=== PATIENT | male | born 1945 | race Caucasian/White ===

== ENCOUNTER 2017-07-07 14:31 | Emergency (ER) | payer MEDICARE, OTHER ==
[~2017-07-07 14:31] MED LIST: ATEN1TAB74
[2017-07-07 14:38] VITALS: BP 206/114; PULSE 100; RESP 20; TEMP 97.2; O2SAT 96
[2017-07-07] MEDS ORDERED: MULTTAB67 PO (15:23)
[2017-07-07] MEDS ORDERED: OMEGCAP PO (15:23)
[2017-07-07] MEDS ORDERED: HYDR-3516 PO (15:40)
[2017-07-07] MEDS ORDERED: ACYC800T PO (15:40)
--- NOTE | 2017-07-07 15:40 | PD ---
HPI Chief Complaint: Skin Problem Time Seen by Provider: 15:37 Travel History International Travel<30 days: No Contact w/Intl Traveler<30days: No Traveled to known affect area: No History of Present Illness HPI Patient presents with complaints of a rash in his left flank for 4 days. Denies any nausea vomiting diarrhea or fever. Reports associated pain with a rash. No history of Zostavax. Denies any chest pain shortness of breath urinary or bowel symptoms. PFSH Past Medical History Hypertension: Yes Tetanus Vaccination: > 5 Years Influenza Vaccination: Yes ?: Not Social History Alcohol Use: Yes (occ) Tobacco Use: No Allergies-Medications (Allergen,Severity, Reaction): Coded Allergies: No Known Allergies (Verified Allergy, Mild, 11/21/06) Uncoded Allergies: STEROIDS (Allergy, Severe, 11/21/06) Reported Meds & Prescriptions Reported Meds & Active Scripts Active Reported Multiple Vitamin 1 Tab 1 Tab PO DAILY [place]-3 Fish Oil/Vitamin (Fish Oil-Cholecalciferol) 1,000-1,000 Mg Cap 1 Cap PO DAILY Review of Systems General / Constitutional: No: Fever Eyes: No: Visual changes HENT: No: Headaches Cardiovascular: No: Chest Pain or Discomfort Respiratory: No: Shortness of Breath Gastrointestinal: No: Abdominal Pain Genitourinary: No: Dysuria Musculoskeletal: No: Pain Skin: Positive Rash Neurologic: No: Weakness Psychiatric: No: Depression Endocrine: No: Polydipsia Hematologic/Lymphatic: No: Easy Bruising Physical Exam Narrative GENERAL: Well-nourished, well-developed patient. SKIN: Focused skin assessment warm/dry. HEAD: Normocephalic. EYES: No scleral icterus. No injection or drainage. NECK: Supple, trachea midline. No JVD or lymphadenopathy. CARDIOVASCULAR: Regular rate and rhythm without murmurs, gallops, or rubs. RESPIRATORY: Breath sounds equal bilaterally. No accessory muscle use. GASTROINTESTINAL: Abdomen soft, non-tender, nondistended. MUSCULOSKELETAL: No cyanosis, or edema. BACK: Nontender without obvious deformity. No CVA tenderness. Herpetic rash in the T6-T7 dermatome left side, no significant cellulitic changes Data Data Last Documented VS Vital Signs Date Time Temp Pulse Resp B/P (MAP) Pulse Ox O2 Delivery O2 Flow Rate FiO2 07/07/17 14:38 97.2 100 20 206/114 (144) 96 [facility] Medical Decision Making Medical Screen Exam Complete: Yes Emergency Medical Condition: Yes Differential Diagnosis Herpes zoster, cellulitis, contact dermatitis Narrative Course Assessment and plan discussed with patient and at bedside Diagnosis Primary Impression: Herpes zoster Qualified Codes: B02.9 - Zoster without complications Patient Instructions: General Instructions Additional Instructions: Encouraged antibacterial soap and water, discussed general wound care, encouraged to follow-up with PCP, encouraged to return to emergency room with any onset of new symptoms. Scripts Hydrocodone-Acetaminophen (Hydrocodone-Acetaminophen) 5-325 mg Tab 1 TAB PO Q6H Y for PAIN, #30 TAB 0 Refills Prov: Maxim Fiore MD 07/07/17 Acyclovir (Acyclovir) 800 Mg Tab 800 MG PO TID for Mgmt Viral Infection for 10 Days, TAB 0 Refills Prov: Maxim Fiore MD 07/07/17 Disposition: 01 DISCHARGE HOME Condition: Good Maxim Fiore MD Jul 07, 2017 15:40
[2017-07-07 15:48] VITALS: BP 164/80; PULSE 92; RESP 16; O2SAT 97
[2017-07-08] MEDS ORDERED: DILA2TAB2 PO (17:12)
[2017-07-08] MEDS ORDERED: PRED20 PO (17:12)
== END 2017-07-07 16:01 | disposition home or self-care (01) ==
LOC: PHED 14:31
DX: B02.9 Zoster without complications (principal); I10 Essential (primary) hypertension
CPT/HCPCS: 99283

== ENCOUNTER 2017-07-08 16:32 | Emergency (ER) | payer MEDICARE, OTHER ==
[~2017-07-08] VITALS: Ht 188 cm; Wt 141.5 kg
[~2017-07-08 16:32] MED LIST changes: +ACYC800T PO; +HYDR-3516 PO; +MULTTAB67 PO; +OMEGCAP PO
[2017-07-08 16:38] VITALS: BP 187/102; PULSE 104; RESP 16; TEMP 99; O2SAT 95
--- NOTE | 2017-07-08 17:01 | PD ---
HPI Chief Complaint: Skin Problem Time Seen by Provider: 16:55 Travel History International Travel<30 days: No Contact w/Intl Traveler<30days: No Traveled to known affect area: No History of Present Illness HPI Patient 72-year-old male presents emergency department for second evaluation for shingles rash this week. He was seen a few days ago and diagnosed with shingles per kaleigh Bello and acyclovir and hydrocodone. He states the pain medicine is not helping him and he continues to have pain in the left flank. States pain is moderate, spasmodic, not associated with any constipation diarrhea nausea or vomiting. Denies any fever. Context as above. PFSH Past Medical History Hypertension: Yes Social History Alcohol Use: Yes (occ) Tobacco Use: No Allergies-Medications (Allergen,Severity, Reaction): Coded Allergies: No Known Allergies (Verified , 07/08/17) Uncoded Allergies: STEROIDS (Allergy, Severe, 11/21/06) Reported Meds & Prescriptions Reported Meds & Active Scripts Active Prednisone 20 Mg Tab 60 Mg PO DAILY 5 Days Dilaudid (Hydromorphone HCl) 2 Mg Tab 2 Mg PO Q6H PRN Hydrocodone-Acetaminophen 5-325 mg Tab 1 Tab PO Q6H PRN Acyclovir 800 Mg Tab 800 Mg PO TID 10 Days Reported Multiple Vitamin 1 Tab 1 Tab PO DAILY [place]-3 Fish Oil/Vitamin (Fish Oil-Cholecalciferol) 1,000-1,000 Mg Cap 1 Cap PO DAILY Review of Systems Except as stated in HPI: all other systems reviewed are Neg Physical Exam Narrative GENERAL: Well-nourished, well-developed patient. SKIN: There is an impression shingles eruption on the patient's left flank wrapping all the way around his abdomen approximately L1 level. Blisters are coalescing, erythematous but minimally so. Does not appear to be secondarily infected. Abdomen is otherwise benign. HEAD: Normocephalic. EYES: No scleral icterus. No injection or drainage. NECK: Supple, trachea midline. No JVD or lymphadenopathy. CARDIOVASCULAR: Regular rate and rhythm without murmurs, gallops, or rubs. RESPIRATORY: Breath sounds equal bilaterally. No accessory muscle use. GASTROINTESTINAL: Abdomen soft, non-tender, nondistended. MUSCULOSKELETAL: No cyanosis, or edema. BACK: Nontender without obvious deformity. No CVA tenderness. Data Data Last Documented VS Vital Signs Date Time Temp Pulse Resp B/P (MAP) Pulse Ox O2 Delivery O2 Flow Rate FiO2 07/08/17 17:59 102 18 131/82 (98) 97 07/08/17 16:38 99.0 Orders Orders Lidocaine 2% Jelly (Xylocaine 2% Jelly) (07/08/17 17:15) Hydromorphone (Dilaudid) (07/08/17 17:15) Ed Discharge Order (07/08/17 17:12) MDM Medical Decision Making Medical Screen Exam Complete: Yes Emergency Medical Condition: Yes Differential Diagnosis Shingles rash, abdominal wall pain, secondary infection unlikely. Narrative Course Discussed with the patient additional measures including steroid prescription, small prescription for Dilaudid to be used extremely sparingly, provided lidocaine jelly in the emergency department to be used as well. Discussed signs symptoms to prompt her return to ED. Discussed need for follow-up with a primary care physician for a checkup and he verbalized understanding and agreement. Diagnosis Primary Impression: Shingles Qualified Codes: B02.9 - Zoster without complications Med/Other Pt SpecificInfo: Prescription(s) given Scripts Prednisone (Prednisone) 20 Mg Tab 60 MG PO DAILY for 5 Days, #15 TAB 0 Refills Prov: Kervin Quispe MD 07/08/17 Hydromorphone (Dilaudid) 2 Mg Tab 2 MG PO Q6H Y for Pain Management, #10 TAB 0 Refills Prov: Kervin Quispe MD 07/08/17 Disposition: 01 DISCHARGE HOME Condition: Stable Kervin Quispe MD Jul 08, 2017 17:01
[2017-07-08] MEDS ORDERED: DILA2TAB2 PO (17:12)
[2017-07-08] MEDS ORDERED: PRED20 PO (17:12)
[2017-07-08] MEDS ORDERED: LIDOCAINE 2% JELLY 30 ML TUBE TOPICAL ONE ×2 (17:15)
[2017-07-08] MEDS ORDERED: HYDROmorphone HCL 2 MG TAB PO ONE (17:15)
[2017-07-08 17:59] VITALS: BP 131/82
== END 2017-07-08 18:00 | disposition home or self-care (01) ==
LOC: PHED 16:32
DX: B02.9 Zoster without complications (principal)
CPT/HCPCS: 99284

== ENCOUNTER 2017-07-27 09:47 | Emergency (ER) | payer MEDICARE, OTHER ==
[~2017-07-27] VITALS: Ht 188 cm; Wt 137.0 kg
[~2017-07-27 09:47] MED LIST changes: -ATEN1TAB74; +DILA2TAB4 PO; +PRED20 PO
[2017-07-27 09:53] VITALS: BP 165/100; PULSE 100; RESP 16; TEMP 97.5; O2SAT 95
[2017-07-27] MEDS ORDERED: LYRI75CA PO (10:22)
[2017-07-27] MEDS ORDERED: HYDR-3516 PO (10:22)
--- NOTE | 2017-07-27 10:23 | PD ---
Data Data Last Documented VS Vital Signs Date Time Temp Pulse Resp B/P (MAP) Pulse Ox O2 Delivery O2 Flow Rate FiO2 07/27/17 09:53 97.5 100 16 165/100 (121) 95 [facility] Medical Record Reviewed: Yes Supervised Visit with SHAYY: Yes Narrative Course I, Dr. Hollis, have reviewed the advance practice practitioner's documentation and am in agreement, met with the patient face to face, made the diagnosis, and the medical decision making was done by me. *My assessment and Findings: Lyrica script Three day supply of hydrocodone Outpatient primary care for followup and for chronic pain management. Pt educated regarding safe opioid prescribing. Diagnosis Primary Impression: Herpes zoster Qualified Codes: B02.8 - Zoster with other complications Additional Impression: Neuropathic pain Referrals: Katherine Ledezma MD call for appointment Additional Instruction: PLEASE CALL DR LEDEZMA TO ESTABLISH ONGOING CARE. Med/Other Pt SpecificInfo: Prescription(s) given Scripts Pregabalin (Lyrica) 75 Mg Cap 75 MG PO BID, #60 CAP 0 Refills Prov: John Hollis MD 07/27/17 Hydrocodone-Acetaminophen (Hydrocodone-Acetaminophen) 5-325 mg Tab 1 TAB PO Q6H Y for PAIN, #20 TAB 0 Refills Prov: John Hollis MD 07/27/17 Disposition: 01 DISCHARGE HOME Condition: Stable John Hollis MD Jul 27, 2017 10:23
--- NOTE | 2017-07-27 10:27 | PD ---
HPI Chief Complaint: Pain: Acute or Chronic Time Seen by Provider: 10:00 Travel History International Travel<30 days: No Contact w/Intl Traveler<30days: No Traveled to known affect area: No History of Present Illness HPI 72-year-old male here for evaluation of continued pain of a herpes zoster rash to his left trunk. Patient was originally seen on 07/07/70 treated with acyclovir, prednisone, hydrocodone. He was reevaluated the following day for continued pain and prescribed Dilaudid. He reports the rash is improving but has continued pain to the left trunk region. He denies fever, chills, chest pain, abdominal pain, nausea vomiting. He is requesting a refill of Dilaudid and demanding more than a three-day supply. Patient did not follow- up with PCP as directed stating that he does not have a primary doctor. PFS Past Medical History Hypertension: Yes Social History Alcohol Use: Yes (occ) Tobacco Use: No Substance Use: No Allergies-Medications (Allergen,Severity, Reaction): Coded Allergies: No Known Allergies (Verified Adverse Reaction, Unknown, 07/27/17) Uncoded Allergies: STEROIDS (Allergy, Severe, 11/21/06) Reported Meds & Prescriptions Reported Meds & Active Scripts Active Prednisone 20 Mg Tab 60 Mg PO DAILY 5 Days Acyclovir 800 Mg Tab 800 Mg PO TID 10 Days Reported Multiple Vitamin 1 Tab 1 Tab PO DAILY [place]-3 Fish Oil/Vitamin (Fish Oil-Cholecalciferol) 1,000-1,000 Mg Cap 1 Cap PO DAILY Review of Systems Except as stated in HPI: all other systems reviewed are Neg General / Constitutional: No: Fever Skin: Positive Rash Physical Exam Narrative GENERAL: Well-nourished, well-developed patient. SKIN: Focused skin assessment warm/dry. Healing herpetic rash to the left trunk. No evidence of abscess formation, cellulitis, wound infection. HEAD: Normocephalic. EYES: No scleral icterus. No injection or drainage. NECK: Supple, trachea midline. No JVD or lymphadenopathy. CARDIOVASCULAR: Regular rate and rhythm without murmurs, gallops, or rubs. RESPIRATORY: Breath sounds equal bilaterally. No accessory muscle use. GASTROINTESTINAL: Abdomen soft, non-tender, nondistended, obese abdomen. MUSCULOSKELETAL: No cyanosis, or edema. BACK: Nontender without obvious deformity. No CVA tenderness. Data Data Last Documented VS Vital Signs Date Time Temp Pulse Resp B/P (MAP) Pulse Ox O2 Delivery O2 Flow Rate FiO2 07/27/17 09:53 97.5 100 16 165/100 (121) 95 MDM Medical Decision Making Medical Screen Exam Complete: Yes Emergency Medical Condition: Yes Differential Diagnosis Herpes zoster, postherpetic neuralgia, flank pain Narrative Course 72 year old male here for evaluation of herpes zoster pain. This is the patient 's third visit. He denies fever or chills. He reports the rash is improving, but the pain continues. He reports symptom improvement with the Dilaudid that he was previously prescribed. On exam he has a large area of herpetic rash to the left trunk extending from the anterior to posterior aspect. There is no evidence of infection. Diagnosis Primary Impression: Neuropathic pain Additional Impression: Herpes zoster Referrals: Primary Care Physician Disposition: 01 DISCHARGE HOME Condition: Stable Ana Baxter Jul 27, 2017 10:27
== END 2017-07-27 10:39 | disposition home or self-care (01) ==
LOC: PHED 09:47 → PHEFT 10:39
DX: B02.29 Other postherpetic nervous system involvement (principal)
CPT/HCPCS: 99283